=== PATIENT | female | born 2000 | race Caucasian/White ===

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

== ENCOUNTER 2021-04-22 16:56 | Emergency (ER) | payer OTHER, SELFPAY ==
[2021-04-22 17:04] VITALS: BP 122/86; PULSE 110; RESP 16; TEMP 36.8; O2SAT 99
--- NOTE | 2021-04-22 17:18 | ED.URI ---
HPI - URI/Sore Throat General Chief Complaint: Upper Respiratory Infection Stated Complaint: VOMITING/HEADACHE/FEVER/STUFFY NOSE Time Seen by Provider: 04/22/21 17:10 Source: patient and RN notes reviewed Mode of arrival: ambulatory Limitations: no limitations History of Present Illness HPI Narrative: 20-year-old female presents with concern for 5-day history of vomiting, headache, intermittent fever, nasal congestion. She is fully vaccinated for Covid. Reports she has been taking Sudafed and ibuprofen with no relief. Reports occasional cough. Denies shortness of breath, body aches, chills, sweats. Patient reports she has not vomited in approximately 3 days MD elicited complaint: nasal congestion Related Data Home Medications Medication Instructions Recorded Confirmed albuterol sulfate 2.5 mg CONTINUOUS NEBULIZATION PER 08/08/19 08/08/19 PKG DIR PRN drospirenone-ethinyl estradiol tablet 04/22/21 [Loryna (28)] fluticasone propion-salmeterol INHALATION 04/22/21 [Advair HFA] Allergies Allergy/AdvReac Type Severity Reaction Status Date / Time latex Allergy Severe BLISTERS/SKIN Verified 04/22/21 17:04 PEALING AND HIVES Cephalosporins Allergy Mild Nausea and Verified 04/22/21 17:04 Vomiting clarithromycin Allergy Mild SEVERE Verified 04/22/21 17:04 VOMITING Penicillins Allergy Unknown SEVERE Verified 04/22/21 17:04 VOMITING- SEE NOTE BETALACTAMASEIN Allergy Unknown SEVERE Uncoded 04/22/21 17:04 VOMITING- SEE NOTE Review of Systems Review of Systems: CONSTITUTIONAL: Denies malaise, chills, sweats. Reports intermittent fever. EYES: Denies visual changes, redness, or discharge. ENT: Reports rhinorrhea, congestion, sinus pain, otalgia and sore throat. CARDIOVASCULAR: Denies chest pain, palpitations, or edema. RESPIRATORY: Reports occasional cough. Denies dyspnea. GASTROINTESTINAL: Denies abdominal pain, nausea, vomiting, diarrhea SKIN: Denies rash or itching. MUSCULOSKELETAL: Denies myalgia. NEUROLOGIC: Denies headache. All systems reviewed & are unremarkable except as noted in HPI and below PMFSH Past Medical History Medical History (Updated 04/22/21 @ 17:35 by Lizzette Peres NP) Anxiety Asthma IBS (irritable bowel syndrome) Surgical History Surgical History (Updated 07/23/20 @ 12:20 by ESPERANZA Martinez) History of tonsillectomy Family History Family History (Updated 07/23/20 @ 12:20 by ESPERANZA Martinez) Other Diabetes mellitus Hypertension Comments At time of signature, agree with nursing past medical, surgical, social and family history. There is no relevant family history pertinent to the presenting complaint Exam Narrative: GENERAL: Well-appearing, well-nourished, and in no acute distress. HEAD: Normocephalic EYES: PERRLA, conjunctivae clear ENT: Nares clear, turbinates erythematous, clear discharge. Mucous membranes moist. TM pearly castro with dull light reflex bilaterally; no tragal tenderness. Oropharynx not erythematous without lesions. Tonsils not enlarged and without exudate, no drooling, no hoarseness, no trismus, uvula midline. NECK: Supple. No lymphadenopathy CHEST: Clear to auscultation, breath sounds equal. No wheezing, rhonchi, rales, or stridor. No respiratory distress, speaks in full sentences. HEART: Regular rate and rhythm. No murmur heard. SKIN: Warm, dry, no rash. NEURO: Alert and oriented x3. PSYCH: Normal mood and affect Course Course Emergency Course: Patient is aware of diagnosis, understands and agrees to treatment plan. Anticipatory guidance given. Patient agrees to follow-up as directed and is aware of reasons to seek care at the emergency department. Portions of this record may have been created with voice recognition software Vital Signs Vital signs: Vital Signs Temperature 98.3 F 04/22/21 17:04 Pulse Rate 110 H 04/22/21 17:04 Respiratory Rate 16 04/22/21 17:04 Blood Pressure 122/86
[2021-04-24 19:00] LABS: SARS-CoV-2 RNA PCR Negative
== END 2021-04-22 17:43 | disposition home or self-care (01) ==
PROVIDERS: Emergency Provider Nurse Practitioner; PCP Pediatrics
DX: J06.9 Acute upper respiratory infection, unspecified (principal); Z20.822 Contact with and (suspected) exposure to COVID-19; J45.909 Unspecified asthma, uncomplicated
CPT/HCPCS: 87426; 99213; C9803; G0463; U0003; U0005

== ENCOUNTER 2022-08-13 18:39 | Emergency (ER) | payer OTHER, SELFPAY ==
[2022-08-13 18:47] VITALS: BP 124/80; PULSE 105; RESP 16; TEMP 35.9; O2SAT 100
--- NOTE | 2022-08-13 18:57 | ED.URI ---
HPI - URI/Sore Throat General Chief Complaint: Upper Respiratory Infection Stated Complaint: cough,congestion Time Seen by Provider: 08/13/22 19:00 Source: patient and RN notes reviewed Mode of arrival: ambulatory Limitations: no limitations History of Present Illness HPI Narrative: 21-year-old female presents with concern for 2 week history of nasal congestion, postnasal drainage, headache, ear fullness, cough. Reports she has taken Sudafed and Delsym without relief. She denies fever, aches, chills, sweats MD elicited complaint: cough and nasal congestion Related Data Home Medications Medication Instructions Recorded Confirmed albuterol sulfate 2.5 mg/3 mL 2.5 mg continuous nebulization PER 08/08/19 08/13/22 (0.083 %) solution for nebulization PKG DIR PRN Shortness Of Breath drospirenone 3 mg-ethinyl 1 tablet PO DAILY 04/22/21 08/13/22 estradiol 0.02 mg tablet (Loryna (28)) fluticasone propionate 45 2 puff inhalation DAILY 04/22/21 08/13/22 mcg-salmeterol 21 mcg/actuation HFA inhaler (Advair HFA) Allergies Allergy/AdvReac Type Severity Reaction Status Date / Time latex Allergy Severe BLISTERS/SKIN Verified 04/22/21 17:04 PEALING AND HIVES Cephalosporins Allergy Mild Nausea and Verified 04/22/21 17:04 Vomiting clarithromycin Allergy Mild SEVERE Verified 04/22/21 17:04 VOMITING Penicillins Allergy Unknown SEVERE Verified 04/22/21 17:04 VOMITING- SEE NOTE BETALACTAMASEIN Allergy Unknown SEVERE Uncoded 04/22/21 17:04 VOMITING- SEE NOTE Review of Systems Review of Systems: CONSTITUTIONAL: Denies malaise, chills, sweats, or fever. EYES: Denies visual changes, redness, or discharge. ENT: Reports rhinorrhea, congestion, sinus pain, otalgia CARDIOVASCULAR: Denies chest pain, palpitations, or edema. RESPIRATORY: Reports cough. Denies dyspnea. GASTROINTESTINAL: Denies abdominal pain, nausea, vomiting, diarrhea SKIN: Denies rash or itching. MUSCULOSKELETAL: Denies myalgia. NEUROLOGIC: Denies headache. All systems reviewed & are unremarkable except as noted in HPI and below PMFSH Past Medical History Medical History (Updated 08/13/22 @ 19:10 by Lizzette Peres NP) Anxiety Asthma IBS (irritable bowel syndrome) Surgical History Surgical History (Updated 07/23/20 @ 12:20 by ESPERANZA Martinez) History of tonsillectomy Family History Family History (Updated 07/23/20 @ 12:20 by ESPERANZA Martinez) Other Diabetes mellitus Hypertension Comments At time of signature, agree with nursing past medical, surgical, social and family history. There is no relevant family history pertinent to the presenting complaint Exam Narrative: GENERAL: Well-appearing, well-nourished, and in no acute distress. HEAD: Normocephalic EYES: PERRLA, conjunctivae clear ENT: Nares clear, turbinates edematous and erythematous, green discharge. Mucous membranes moist. TM pearly castro with dull light reflex bilaterally; no tragal tenderness. Oropharynx not erythematous without lesions. Tonsils not enlarged and without exudate, no drooling, no hoarseness, no trismus, uvula midline. NECK: Supple. No lymphadenopathy CHEST: Clear to auscultation, breath sounds equal. No wheezing, rhonchi, rales, or stridor. No respiratory distress, speaks in full sentences. Cough noted HEART: Regular rate and rhythm. No murmur heard. SKIN: Warm, dry, no rash. NEURO: Alert and oriented x3. PSYCH: Normal mood and affect Course Course Emergency Course: Patient is aware of diagnosis, understands and agrees to treatment plan. Anticipatory guidance given. Patient agrees to follow-up as directed and is aware of reasons to seek care at the emergency department. Portions of this record may have been created with voice recognition software Level of Care: Express Care Visit Vital Signs Vital signs: Vital Signs Temperature 96.6 F L 08/13/22 18:47 Pulse Rate 105 H 08/13/22 18:47 Respiratory Rate 16
== END 2022-08-13 19:15 | disposition home or self-care (01) ==
PROVIDERS: Emergency Provider Nurse Practitioner; PCP Pediatrics
DX: J32.9 Chronic sinusitis, unspecified (principal); J45.909 Unspecified asthma, uncomplicated
CPT/HCPCS: 99213; G0463

== ENCOUNTER 2022-09-04 18:49 | Emergency (ER) | payer OTHER, SELFPAY ==
--- NOTE | ~2022-09-04 | XR_ITS ---
EXAM: XR foot RT min 3V DATE: 09/04/2022 19:07 HISTORY: Hit Pinky toe last week. Noted bruising. . COMPARISON: None available. FINDINGS: Normal mineralization. Nondisplaced transverse fracture of the proximal aspect of the righ t fifth proximal phalange. No lytic or blastic lesion. Joint spaces are maintained. No erosion or per iosteal change. Soft tissues within normal limits. IMPRESSION: Nondisplaced, transverse fracture of the proximal aspect of the right fifth proximal phal nadeem. Reviewed, dictated and finalized at location K. IMPRESSION: Nondisplaced, transverse fracture of the proximal aspect of the rig ht fifth proximal phalange.
[2022-09-04 18:59] VITALS: BP 132/80; PULSE 97; RESP 16; TEMP 36.2; O2SAT 100
--- NOTE | 2022-09-04 19:21 | ED.LOWEXIN ---
HPI - Extremity Injury (Lower) General Chief Complaint: Extremity Injury, Lower Stated Complaint: rt foot pinky toe injury Source: patient and RN notes reviewed History of Present Illness HPI Narrative: 22 yo F presents to urgent care with complaints of right pinky toe pain and swelling. Pt states she accidentally kicked the corner of the wall last Saturday. Pt has been wearing a post-op shoe. Denies any numbness, tingling, or any other injury. Related Data Home Medications Medication Instructions Recorded Confirmed albuterol sulfate 2.5 mg/3 mL 2.5 mg continuous nebulization PER 08/08/19 08/13/22 (0.083 %) solution for nebulization PKG DIR PRN Shortness Of Breath drospirenone 3 mg-ethinyl 1 tablet PO DAILY 04/22/21 08/13/22 estradiol 0.02 mg tablet (Loryna (28)) fluticasone propionate 45 2 puff inhalation DAILY 04/22/21 08/13/22 mcg-salmeterol 21 mcg/actuation HFA inhaler (Advair HFA) Allergies Allergy/AdvReac Type Severity Reaction Status Date / Time latex Allergy Severe BLISTERS/SKIN Verified 04/22/21 17:04 PEALING AND HIVES Cephalosporins Allergy Mild Nausea and Verified 04/22/21 17:04 Vomiting clarithromycin Allergy Mild SEVERE Verified 04/22/21 17:04 VOMITING Penicillins Allergy Unknown SEVERE Verified 04/22/21 17:04 VOMITING- SEE NOTE BETALACTAMASEIN Allergy Unknown SEVERE Uncoded 04/22/21 17:04 VOMITING- SEE NOTE Review of Systems Review of Systems: CONSTITUTIONAL: Denies fever, chills, or sweats. EYES: Denies visual changes, redness, or discharge. ENT: Denies otalgia and sore throat CARDIOVASCULAR: Denies chest pain, palpitations, or edema. RESPIRATORY: Denies cough or dyspnea. GASTROINTESTINAL: Denies abdominal pain, nausea, vomiting, or diarrhea. GENITOURINARY: Denies dysuria or hematuria. SKIN: Denies rash or itching. MUSCULOSKELETAL: right pinky toe pain NEUROLOGIC: Denies headache, numbness, or weakness. Pertinent positives per HPI. [facility] Past Medical History Medical History (Updated 09/04/22 @ 19:25 by Karlie Hewitt, ROMARIO) Anxiety Asthma IBS (irritable bowel syndrome) Surgical History Surgical History (Updated 07/23/20 @ 12:20 by ESPERANZA Martinez) History of tonsillectomy Family History Family History (Updated 07/23/20 @ 12:20 by ESPERANZA Martinez) Other Diabetes mellitus Hypertension Comments At the time of my signature, I reviewed and agree with the nursing past medical, surgical, social, and family history. There is no relevant family history pertinent to the patient complaint. Exam Narrative: GENERAL: This is a well-nourished, well-developed patient, in no apparent distress. HEAD: normocephalic, atraumatic. EYES: PERRL. Sclera clear/white. Vision is grossly intact. EARS: External ears normal, auditory canals clear and without drainage, TMs normal without perforation. Hearing grossly intact. NOSE: External nose normal with no obvious nasal discharge, nares without redness, no rhinorrhea. THROAT: Mucous membranes moist, posterior pharynx clear. NECK: Neck supple, non-tender without lymphadenopathy, masses or thyromegaly. CARDIOVASCULAR: Regular rate. RESPIRATORY: no respiratory distress SKIN: warm, intact with no suspicious lesions or rash, good texture and turgor. NEURO: awake, alert, and oriented to person, place and time. There were no obvious focal neurologic abnormalities. EXTREMITIES: right pinky toe ecchymosis and mild swelling Course Course Level of Care: Express Care Visit Vital Signs Vital signs: Vital Signs Temperature 97.1 F L 09/04/22 18:59 Pulse Rate 97 09/04/22 18:59 Respiratory Rate 16 09/04/22 18:59 Blood Pressure 132/80 09/04/22 18:59 Pulse Oximetry 100 09/04/22 18:59 Oxygen Delivery Room Air 09/04/22 18:59 Temperature 97.1 F L 09/04/22 18:59 Pulse Rate 97 09/04/22 18:59 Respiratory Rate 16 09/04/22 18:59 Blood Pressure 132/80 09/04/22 18:5
== END 2022-09-04 19:28 | disposition home or self-care (01) ==
PROVIDERS: Emergency Provider Nurse Practitioner Family; PCP Pediatrics
DX: S92.514A Nondisplaced fracture of proximal phalanx of right lesser toe(s), initial encounter for closed fracture (principal); W22.01XA Walked into wall, initial encounter
CPT/HCPCS: 73630; 99213; G0463

== ENCOUNTER 2022-10-16 03:12 | Emergency (ER) | payer OTHER, SELFPAY ==
[2022-10-16] VITALS (15 sets, daily range): BP systolic 103–123; BP diastolic 71–87; PULSE 120; RESP 16; TEMP 36.5; O2SAT 98–100
[2022-10-16 03:46] LABS: Basophils Percent Auto 0.3 % (0.2-1.2); Eosinophils Absolute Auto 0.1 K/mm3 (0-0.3); Eosinophils Percent Auto 0.9 % (0-4.4); Hematocrit 43.8 % (37.0-47.0); Hemoglobin 14.1 g/dL (12.0-15.0); Immature Granulocyte Absolute 0.03 K/mm3 (0.00-0.031); Immature Granulocyte Percent A 0.3 % (0-0.5); Lymphocytes Absolute Auto 2.26 K/mm3 (0.9-3.2); Lymphocytes Percent Auto 24.7 % (18.3-44.2); Mean Corpuscular HGB Conc 32.2 g/dl (32-36); Mean Corpuscular Hemoglobin 26.3 pg (26-34); Mean Corpuscular Volume 81.6 fl (80-100); Mean Platelet Volume 9.1 fl (7.4-10.4); Monocytes Absolute Auto 0.5 K/mm3 (0.1-0.6); Monocytes Percent Auto 5.7 % (2.6-8.5); Neutrophils Absolute Auto 6.2 K/mm3 (1.3-6.7); Neutrophils Percent Auto 68.1 % (45.5-73.1); Platelet Count Result 342 k/mm3 (150-375); Red Blood Count 5.37 M/mm3 (4.2-5.4); Red Cell Distribution Width 14.6 % (11.5-14.5); White Blood Count 9.2 K/mm3 (4.5-10.0)
[2022-10-16 03:49] LABS: Appearance Urine Cloudy (Clear); Bacteria Urine None Seen /hpf; Bilirubin Urine Negative (Negative); Blood Urine 3+ (Negative); Color Urine Yellow (Yellow); Glucose Urine UA Negative (Negative); Ketones Urine Negative (Negative); Leukocyte Esterase Ur Negative LEU/UL (Negative); Nitrate Urine Negative (Negative); Non Pathogenic Casts 0-2; Protein Urine Trace mg/dL (Negative); RBC Urine >100 /hpf (0-2); Specific Grav Ur 1.012 (1.001-1.035); Squamous Epithelial Cell Urine Few /hpf (Few); Urobilinogen Urine 0.2 mg/dL (<2.0); WBC Urine 0-5 /hpf
[2022-10-16 03:53] LABS: Add Urine Microscopic? YES
[2022-10-16 03:55] LABS: Alanine Aminotransferase 50 U/L (6-35); Albumin Level 4.2 g/dL (3.5-5.1); Alkaline Phosphatase 97 U/L (38-126); Anion Gap 9 mmol/L (8-16); Aspartate Amino Transferase 39 U/L (14-36); Bilirubin,Total 0.4 mg/dL (0.2-1.3); Blood Urea Nitrogen 7 mg/dL (7-17); Calcium 8.8 mg/dL (8.4-10.2); Carbon Dioxide 25 mmol/L (22-30); Chloride 105 mmol/L (98-107); Estimated CRCL calculation 123 ml/min; Estimated Glomerular Filt Rate > 60; Glucose 106 mg/dL (65-110); Lipase 91 U/L (23-300); Potassium 3.4 mmol/L (3.4-5.0); Sodium 139 mmol/L (137-145)
[2022-10-16] MEDS: ONDANSETRON INJ 4 MG/2 ML VIAL 8 MG IV PUSH (04:11)
[2022-10-16] MEDS: SODIUM CHLORIDE 0.9% IV 3,000 ML 999 ML IV CONT (04:11)
[2022-10-16] MEDS: FAMOTIDINE 20 MG/2 ML VIAL IV PUSH (04:11)
--- NOTE | 2022-10-16 06:30 | ED.GENADULT ---
HPI - General Adult General Chief complaint: Abdominal Pain Stated complaint: abd pain, N/V/D Time Seen by Provider: 10/16/22 03:43 History of Present Illness HPI narrative: This is a 22-year-old female presenting with 3 days of nausea vomiting and diarrhea. she is also complaining of diffuse crampy abdominal pain that is nonradiating, 7 on 10 intensity and comes and goes. She has never experienced pain like this before, is relieved when she has a bowel movement and is worse with eating. She denies fever, chills, URI symptoms, chest pain difficulty breathing or urinary symptoms. She is currently on her. Related Data Home Medications Medication Instructions Recorded Confirmed albuterol sulfate 2.5 mg/3 mL 2.5 mg continuous nebulization PER 08/08/19 08/13/22 (0.083 %) solution for nebulization PKG DIR PRN Shortness Of Breath drospirenone 3 mg-ethinyl 1 tablet PO DAILY 04/22/21 08/13/22 estradiol 0.02 mg tablet (Loryna (28)) fluticasone propionate 45 2 puff inhalation DAILY 04/22/21 08/13/22 mcg-salmeterol 21 mcg/actuation HFA inhaler (Advair HFA) Allergies Allergy/AdvReac Type Severity Reaction Status Date / Time latex Allergy Severe BLISTERS/SKIN Verified 09/04/22 19:45 PEALING AND HIVES Cephalosporins Allergy Mild Nausea and Verified 09/04/22 19:45 Vomiting clarithromycin Allergy Mild SEVERE Verified 09/04/22 19:45 VOMITING Penicillins Allergy Unknown SEVERE Verified 09/04/22 19:45 VOMITING- SEE NOTE BETALACTAMASEIN Allergy Unknown SEVERE Uncoded 04/22/21 17:04 VOMITING- SEE NOTE [facility] Past Medical History Medical History Anxiety Asthma IBS (irritable bowel syndrome) Surgical History Surgical History History of tonsillectomy Family History Family History Other Diabetes mellitus Hypertension Exam Narrative: APPEARANCE: No apparent distress. polite and pleasant, well-appearing Head: atraumatic. EYES: EOMI, NOSE: Atraumatic NECK: Trachea midline RESPIRATORY: No increased rate of breathing, CTAB CARDIOVASCULAR: RRR, ABDOMINAL: mild tenderness in the epigastric area but no guarding or rebound. No CVA tenderness MUSCULOSKELETAl: No obvious deformities NEURO: Alert. Moving 4/4 extremities SKIN:: Warm, dry. Normal color PSYCHIATRIC: Normal affect Course Vital Signs Vital signs: Vital Signs Temperature 97.7 F 10/16/22 03:16 Pulse Rate 120 H 10/16/22 03:16 Respiratory Rate 16 10/16/22 03:16 Blood Pressure 123/87 10/16/22 03:16 Pulse Oximetry 99 10/16/22 03:16 Oxygen Delivery Room Air 10/16/22 03:16 Temperature 97.7 F 10/16/22 03:16 Pulse Rate 120 H 10/16/22 03:16 Respiratory Rate 16 10/16/22 03:16 Blood Pressure 123/87 10/16/22 03:16 Pulse Oximetry 99 10/16/22 03:16 Oxygen Delivery Room Air 10/16/22 03:16 Medical Decision Making [facility] Narrative Medical decision making narrative: -Presentation: 22-year-old female presenting with 3 days of nausea vomiting diarrhea. She had abnormal vital signs at presentation. She will be given 3 L of fluid and symptomatic treatment. Abdominal lab work has been ordered. 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 Metabolic panel showed slight elevations in AST and ALT. Urinalysis was not indicative of infection. Dx lacey
== END 2022-10-16 07:01 | disposition home or self-care (01) ==
PROVIDERS: Emergency Provider Emergency Medicine; PCP Pediatrics
DX: R11.2 Nausea with vomiting, unspecified (principal); R19.7 Diarrhea, unspecified; E86.0 Dehydration; J45.909 Unspecified asthma, uncomplicated; K58.9 Irritable bowel syndrome, unspecified
CPT/HCPCS: 36415; 80053; 81001; 81025; 83690; 85025; 96361; 96374; 96375; 99284; J2405; J7030

== ENCOUNTER 2023-12-04 12:31 | Outpatient (CLI) | payer OTHER, SELFPAY ==
[2023-12-04 20:03] LABS: Cholesterol 228 mg/dL (0-200); HDL Direct 79 mg/dL; Triglycerides 123 mg/dL (<150)
[2023-12-04 20:14] LABS: LDL Cholesterol Direct 110 mg/dL
[2023-12-04 20:21] LABS: Free T4 Free Thyroxine 1.26 ng/mL (0.78-2.19)
[2023-12-04 20:28] LABS: Hemoglobin A1C 5.4 % (<5.7)
== END 2023-12-04 12:32 | disposition home or self-care (01) ==
LOC: ANHGOSHLAB 12:35
PROVIDERS: PCP Family Medicine; Visit Provider Nurse Practitioner
DX: E66.01 Morbid (severe) obesity due to excess calories (principal); Z68.41 Body mass index [BMI] 40.0-44.9, adult
CPT/HCPCS: 36415; 80061; 83036; 84439; 84443

== ENCOUNTER 2024-06-24 11:45 | Outpatient (CLI) | payer OTHER, SELFPAY ==
[2024-06-24 13:13] LABS: Alanine Aminotransferase 14 U/L (6-35); Albumin Level 4.1 g/dL (3.5-5.1); Alkaline Phosphatase 102 U/L (38-126); Anion Gap 4 mmol/L (4-12); Aspartate Amino Transferase 35 U/L (14-36); Bilirubin,Total 0.7 mg/dL (0.2-1.3); Blood Urea Nitrogen 11 mg/dL (7-17); Calcium 9.4 mg/dL (8.4-10.2); Carbon Dioxide 27 mmol/L (22-30); Chloride 104 mmol/L (98-107); Cholesterol 226 mg/dL (0-200); Estimated Glomerular Filt Rate > 60; Glucose 102 mg/dL (65-110); HDL Direct 78 mg/dL; Potassium 4.3 mmol/L (3.4-5.0); Sodium 135 mmol/L (137-145); Triglycerides 154 mg/dL (<150)
[2024-06-24 13:19] LABS: Rheumatoid Factor < 12.0 IU/ML (<12)
[2024-06-24 13:23] LABS: Erythrocyte Sedimentation Rate 13 mm/hr (0-20)
[2024-06-24 13:25] LABS: LDL Cholesterol Direct 104 mg/dL
[2024-06-24 21:14] LABS: Hemoglobin A1C 5.6 % (<5.7)
== END 2024-06-24 11:46 | disposition home or self-care (01) ==
LOC: ANHGOSHLAB 11:46
PROVIDERS: PCP Family Medicine; Visit Provider Family Medicine
DX: Z00.00 Encounter for general adult medical examination without abnormal findings (principal); Z82.61 Family history of arthritis; Z13.1 Encounter for screening for diabetes mellitus; E78.2 Mixed hyperlipidemia; M25.519 Pain in unspecified shoulder
CPT/HCPCS: 36415; 80053; 80061; 83036; 85652; 86038; 86039; 86430

== ENCOUNTER 2024-12-17 11:19 | Outpatient (CLI) | payer OTHER, SELFPAY ==
--- OUTSIDE RECORDS SUMMARY | 2024-12-17 11:25 | XMS_ITS | Clinical Summary ---
Author Organization [facility] Address [address] [place], [place] [id number] Care Team Providers Care Cafeteria Attendant Name Role Phone None, Provider MD Primary Care Provider Unavaila ble Immunizations Immunization Administration Dates Next Due MODERNA COVID-19 (12+) MRNA, LNP-S, PF, 100 MCG/ 0.5 ML DOSE 10/19/2020,09/21/2020 Social History Tobacco Use Types Packs/Day Years Used Date Smoking Tobacco: Never Assessed Comments Unknown Sex and Gender Information Value Date Recorded Sex Assigned at Not on file Legal Sex Female 12:05 PM CDT Gender Identity Not on file Sexual Orientation Not on file Plan of Treatment Health Maintenance Due Date Last Done Comments Cervical Cancer Screening Pap Smear (Age 21 to 29) Every 3 Years 2001 Cervical Cancer Screening 2001 Annual Physical 2004 Hepatitis C 08/29/2019 DTaP, Tdap and Td Vaccines (1 - Tdap) 2020 Hepatitis B Vaccines (1 of 3 - 19+ 3-dose series) 2020 COVID-19 Vaccine (3 - season) 2024 10/19/2020, 09/21/2020 Pneumococcal Vaccine: Pediatrics (0 to 5 Years) and At-Risk Patients (6 to 49 Years) Completed 08/31/2002, 03/25/2002, 01/15/2002, Additional history exists Meningococcal Vaccine Aged Out 01/12/2013 No dhara valerie eligible based on patient's age to complete this topic HPV Vaccines Completed 08/06/2013, 02/17, 01/12/2013 Meningococcal B Vaccine Completed 04/14/2018, 01/22 RSV Immunizations Under 20 Months Aged Out No longer eligible based on patient's age to complete this topic Insurance CIG Care Teams Cafeteria Attendant Relationship Specialty Start Date End Date None, Provider, PCP - General 09/21/20
[2024-12-17 12:47] LABS: Hematocrit 42.2 % (37.0-47.0); Hemoglobin 13.3 g/dL (12.0-15.0); Mean Corpuscular HGB Conc 31.5 g/dl (32-36); Mean Corpuscular Hemoglobin 25.9 pg (26-34); Mean Corpuscular Volume 82.1 fl (80-100); Platelet Count Result 454 k/mm3 (150-375); Red Blood Count 5.14 M/mm3 (4.2-5.4); White Blood Count 7.7 K/mm3 (4.5-10.0)
[2024-12-17 12:54] LABS: Alanine Aminotransferase 13 U/L (6-35); Albumin Level 4.1 g/dL (3.5-5.1); Alkaline Phosphatase 88 U/L (38-126); Anion Gap 7 mmol/L (4-12); Aspartate Amino Transferase 40 U/L (14-36); Bilirubin,Total 0.5 mg/dL (0.2-1.3); Blood Urea Nitrogen 10 mg/dL (7-17); Calcium 9.7 mg/dL (8.4-10.2); Carbon Dioxide 25 mmol/L (22-30); Chloride 104 mmol/L (98-107); Cholesterol 217 mg/dL (0-200); Estimated Glomerular Filt Rate > 60; Glucose 96 mg/dL (65-110); HDL Direct 79 mg/dL; Potassium 4.6 mmol/L (3.4-5.0); Sodium 136 mmol/L (137-145); Total Protein 7.7 g/dL (6.3-8.2); Triglycerides 186 mg/dL (<150)
[2024-12-17 13:23] LABS: Free T4 Free Thyroxine 1.18 ng/dL (0.78-2.19)
[2024-12-17 13:36] LABS: Thyroid Stimulating Hormone Reflex 1.900 uIU/mL (0.465-4.68)
[2024-12-20 03:53] LABS: Insulin Level Total. 12.1 uIU/mL
== END 2024-12-17 11:20 | disposition home or self-care (01) ==
LOC: ANHGOSHLAB 11:22
PROVIDERS: PCP Family Medicine
DX: E55.9 Vitamin D deficiency, unspecified (principal)
CPT/HCPCS: 36415; 80053; 80061; 82306; 83525; 84439; 84443; 85027

== ENCOUNTER 2025-01-26 12:32 | Outpatient (CLI) | payer OTHER, SELFPAY ==
--- OUTSIDE RECORDS SUMMARY | 2025-01-26 12:50 | XMS_ITS | Clinical Summary ---
Author Organization [facility] Address [address] [place], [place] [id number] Care Team Providers Care Reprint Sorter Name Role Phone None, Provider MD Primary [...] complete this topic Insurance CIG Care Teams Reprint Sorter Relationship Specialty Start Date End Date None, Provider, PCP - General 09/21/20
[2025-01-26 19:04] LABS: Hematocrit 42.8 % (37.0-47.0); Hemoglobin 13.4 g/dL (12.0-15.0); Immature Granulocyte Percent A 0.2 % (0-0.5); Lymphocytes Absolute Auto 3.37 K/mm3 (0.9-3.2); Mean Corpuscular HGB Conc 31.3 g/dl (32-36); Mean Corpuscular Hemoglobin 26.0 pg (26-34); Mean Corpuscular Volume 83.1 fl (80-100); Nucleated Red Blood Cells Absolute Auto 0.000 K/mm3 (0.0-0.012); Nucleated Red Blood Cells Perc 0.0 % (0.0-0.2); Platelet Count Result 528 k/mm3 (150-375); Red Blood Count 5.15 M/mm3 (4.2-5.4); White Blood Count 9.6 K/mm3 (4.5-10.0)
[2025-01-26 19:44] LABS: Alanine Aminotransferase 18 U/L (6-35); Albumin Level 4.2 g/dL (3.5-5.1); Alkaline Phosphatase 89 U/L (38-126); Anion Gap 9 mmol/L (4-12); Aspartate Amino Transferase 36 U/L (14-36); Bilirubin,Total 0.4 mg/dL (0.2-1.3); Blood Urea Nitrogen 9 mg/dL (7-17); Calcium 9.9 mg/dL (8.4-10.2); Carbon Dioxide 27 mmol/L (22-30); Chloride 102 mmol/L (98-107); Estimated Glomerular Filt Rate > 60; Glucose 93 mg/dL (65-110); Potassium 4.7 mmol/L (3.4-5.0); Sodium 138 mmol/L (137-145); Total Protein 7.7 g/dL (6.3-8.2)
[2025-01-27 15:09] LABS: ANA by IFA Rfx Titer/Pattern Negative (.)
== END 2025-01-26 12:33 | disposition home or self-care (01) ==
LOC: ANHGOSHLAB 12:33
PROVIDERS: PCP Family Medicine; Visit Provider Student in an Organized Health Care Education/Training Program
DX: R21 Rash and other nonspecific skin eruption (principal); Z91.040 Latex allergy status
CPT/HCPCS: 36415; 80053; 85025; 86038